=== PATIENT | female | born 1965 | race Asian ===

== ENCOUNTER 2022-11-22 11:33 | Outpatient (CLI) | payer OTHER | END 2022-11-22 18:49 | disposition home or self-care (01) | LOC: RAD 11:33 | PROVIDERS: ATTEND Student in an Organized Health Care Education/Training Program | DX: M54.16 Radiculopathy, lumbar region (principal); M48.062 Spinal stenosis, lumbar region with neurogenic claudication; M47.816 Spondylosis without myelopathy or radiculopathy, lumbar region ==